=== PATIENT | male | born 1965 | race Caucasian/White ===

== ENCOUNTER 2020-08-13 06:07 | Emergency (ER) | payer OTHER ==
--- OUTSIDE RECORDS SUMMARY | 2020-08-13 06:23 | XMS ---
:1965 Author Organization [facility] Support Name Relationship Address Phone UE Unavailable Unavailable Unavailable MALIKA PHELAN BROTHER [address] [place] [address] Re-disclosure Warning The records that you are about to access may contain information from federally- assisted alcohol or drug abuse programs. If such information is present, then the following federally mandated warning applies: This information has been disclosed to you from records protected by federal confidentiality rules (42 CFR part 2). The federal rules prohibit you from making any further disclosure of this information unless further disclosure is expressly permitted by the written consent of the person to whom it pertains or as otherwise permitted by 42 CFR part 2. A general authorization for the release of medical or other information is NOT sufficient for this purpose. The Federal rules restrict any use of the information to criminally investigate or prosecute any alcohol or drug abuse patient.The records that you are about to access may contain highly sensitive health information, the redisclosure of which is protected by Article 27-F of the [facility] Public Health law. If you continue you may haveaccess to information: Regarding HIV / AIDS; Provided by facilities licensed or operated by the [facility] Office of Mental Health; or Provided by the [facility] Office for People With Developmental Disabilities. If such information is present, then the following [facility] mandated warning applies: This information has been disclosed to you from confidential records which are protected by state law. State law prohibits you from making any further disclosure of this information without the specific written consent of the person to whom it pertains, or as otherwise permitted by law. Any unauthorized further disclosure in violation of state law may result in a fine or mcfp sentence or both. A general authorization for the release of medical or other information is NOT sufficient authorization for further disclosure. Insurance Providers Payer name Policy type Policy ID Covered Covered democrat's Policy P mushtaq / Coverage democrat ID relationship to [place] [facility] orm[facility] type [place] [id number]
[2020-08-13 06:25] VITALS: BP 151/85; PULSE 72; TEMP 97.1; BMI 30.8
[2020-08-13] MEDS ORDERED: KETOROLAC TROMETHAMINE 30 MG/1 ML VIAL IM ONE (07:32)
[2020-08-13] MEDS ORDERED: diazePAM 5 MG TABLET PO ONE (07:33)
[2020-08-13] MEDS ORDERED: diazePAM 5 MG TABLET ONE (07:42)
[2020-08-13] MEDS ORDERED: KETOROLAC TROMETHAMINE 30 MG/1 ML VIAL ONE (07:42)
--- NOTE | 2020-08-13 08:45 | PDOC ---
History of Present Illness - General Chief Complaint: Pain, Acute Stated Complaint: L LEG PAIN Time Seen by Provider: 08/13/20 07:09 History Source: Patient Exam Limitations: No Limitations - History of Present Illness Initial Comments: 08/13/20 08:40 55-year-old male history of lumbar disc herniations otherwise healthy presents complaining of pain from left buttock traveling laterally down to left knee x 3 days. Describes pain as sharp and tingly. Patient denies direct trauma however was playing on the ground while fixing a car intermittently on the left side of his body 3 to 4 days ago. Denies fever, chills, urinary incontinence, bowel incontinence, weakness to lower extremities, calf pain, palpitations, dizziness, shortness of breath, urinary symptoms or any other complaint. Patient took approximately 400 mg of ibuprofen 3 hours ago with minimal relief. ROS: as above PE: GENERAL: well-appearing, NAD HEAD: NCAT EYES: Pupils equal, round and reactive to light, sclera anicteric, conjunctiva clear ENT: pharynx: no erythema, no exudate, uvula midline NECK: supple CHEST: nontender RESP: clear, no w/r/r CARDIO: rrr, no m/g/r ABD: +BS, soft, nontender, non distended BACK: no midline spinal ttp, no CVAT EXTREMITIES: Normal range of motion, no edema, no pain to L calf, 5/5 strength and sensation NEUROLOGICAL: Normal speech, walking with slight limp SKIN: Warm, Dry Is this a multiple visit Asthma Patient?: No Past History - Medical History Allergies/Adverse Reactions: Allergies Allergy/AdvReac Type Severity Reaction Status Date / Time No Known Allergies Allergy Verified 08/13/20 06:25 Home Medications: Ambulatory Orders Cyclobenzaprine HCl 10 mg PO TID PRN 3 Days #10 tablet 08/13/20 COPD: No - Psycho-Social/Smoking History Smoking History: Never smoked Information on smoking cessation initiated: No - Substance Abuse Hx (Audit-C & DAST Scrn) How often the patient has a drink containing alcohol: Never Score: In Men: 4 or > Positive; In Women: 3 or > Positive: 0 Screen Result (Pos requires Nsg. Audit-10AR): Negative In the last yr the pt used illegal drug/Rx for NonMed reason: No Score: Yes response is considered Positive: 0 Screen Result (Positive result requires Nsg. DAST-10): Negative *Physical Exam - Vital Signs Last Vital Signs Temp Pulse Resp BP Pulse Ox 97.1 F L 72 18 151/85 100 08/13/20 06:23 08/13/20 06:23 08/13/20 06:23 08/13/20 06:23 08/13/20 06:23 ED Treatment Course - RADIOLOGY Radiology Studies Ordered: Category Date Time Status SPINE-LUMBAR SACRAL [RAD] Stat Radiology 08/13/20 07:31 Taken - Medications Given in the ED: ED Medications Discontinued Medications Generic Name Dose Route Start Last Admin Trade Name Dalton PRN Reason Stop Dose Admin Diazepam 5 mg 08/13/20 07:33 08/13/20 07:57 Valium - PO 08/13/20 07:34 5 mg ONCE ONE Administration Ketorolac Tromethamine 30 mg 08/13/20 07:32 08/13/20 07:56 Toradol Injection - IM 08/13/20 07:33 30 mg ONCE ONE Administration Medical Decision Making - Medical Decision Making 08/13/20 08:42 55-year-old male history of lumbar disc herniations otherwise healthy presents complaining of pain from left buttock traveling laterally down to left knee x 3 days. Describes pain as sharp and tingly. Patient denies direct trauma however was playing on the ground while fixing a car intermittently on the left side of his body 3 to 4 days ago. Denies fever, chills, urinary incontinence, bowel incontinence, weakness to lower extremities, calf pain, palpitations, dizziness, shortness of breath, urinary symptoms or any other complaint. Patient took approximately 400 mg of ibuprofen 3 hours ago with minimal relief. LS xray: no acute fracture on my wet read Patient feels some improvement after IM Toradol 30 mg and Valium 5 mg p.o. Patient is ambulatory rx for cyclobenzaprine sent to pharmacy Will follow-up with PMD Discharge - Discharge Information Problems reviewed: Yes Clinical Impression/Diagnosis: Radicular pain of left lower extremity Condition: Fair Disposition: HOME - Admission No - Follow up/Referral Referrals: Leo Moore MD [Primary Care Provider] - Jenaro Stevenson MD, FAANS [Staff Physician] - Nolan Strange MD [Staff Physician] - - Patient Discharge Instructions Additional Instructions: Take cyclobenzaprine 10 mg every 8 hours as needed Take Naprosyn 500 mg twice a day Follow-up with your doctor within 1 week Call to schedule an appointment with neurosurgery within 1 week Return to ED if fever, inability to walk, urinary incontinence, bowel incontinence or any concerning symptom - Post Discharge Activity
== END 2020-08-13 08:50 | disposition home or self-care (01) ==
LOC: JER 06:07
PROC: 3E0233Z Introduction of Anti-inflammatory into Muscle, Percutaneous Approach (ICD-10-PCS; principal; 2020-08-13)
DX: M54.16 Radiculopathy, lumbar region (principal)
CPT/HCPCS: 72100-TC-FY; 96372; 99284-25

== ENCOUNTER 2021-07-25 18:51 | Inpatient (IN) | payer OTHER ==
[2021-07-25] MEDS ORDERED: LIDOCAINE 5% TOPICAL PATCH TP ONE (19:39)
[2021-07-25] MEDS ORDERED: ACETAMINOPHEN 500 MG TABLET (FP) PO ONE (19:39)
[2021-07-25] MEDS ORDERED: METHOCARBAMOL 500 MG TABLET PO ONE (19:39)
[2021-07-25] MEDS ORDERED: ACETAMINOPHEN 325 MG TABLET (FP) ONE (19:48)
[2021-07-25] MEDS ORDERED: LIDOCAINE 5% TOPICAL PATCH ONE (19:49)
[2021-07-25] MEDS ORDERED: METHOCARBAMOL 500 MG TABLET ONE (19:49)
[2021-07-25] MEDS ORDERED: morphine CARPU-JECT 4 MG/1 ML DISP.SYRIN IVPUSH ONE ×2 (20:35→22:31)
[2021-07-25] MEDS ORDERED: morphine SULFATE 4 MG/ML VIAL ONE (20:42)
[2021-07-25 21:04] LABS: BASO % 0.3 % (0-2.0); EOS % 0.2 % (0-4.5); HEMATOCRIT 40.2 % (35.4-49); HEMOGLOBIN 13.9 GM/dL (11.7-16.9); LYMPH % 8.6 % (8-40); MCH 32.5 pg (25.7-33.7); MCHC 34.6 g/dl (32.0-35.9); MEAN PLT VOLUME 7.4 fl (7.5-11.1); MONO % 1.9 % (3.8-10.2); PLATELET COUNT 199 10^3/uL (134-434); RBC 4.28 M/mm3 (4.00-5.60); RDW 14.3 % (11.9-15.9); WHITE BLOOD COUNT 9.1 K/mm3 (4.0-10.0)
[2021-07-25 21:46] LABS: BLOOD UREA NITROGEN 15.6 mg/dL (7-18); CALCIUM 9.2 mg/dL (8.5-10.1)
[2021-07-25 21:49] LABS: CREATININE 1.3 mg/dL (0.55-1.3)
[2021-07-25 21:50] LABS: BILIRUBIN,TOTAL 0.6 mg/dL (0.2-1)
[2021-07-25] MEDS ORDERED: SODIUM CHLORIDE 0.9% 500 ML INFUS.BAG IV ONE (21:50)
[2021-07-25 21:51] LABS: TOT PROT 8.2 g/dl (6.4-8.2)
[2021-07-25 23:55] LABS: URINE APPEARANCE CLEAR; URINE BILIRUBIN NEGATIVE (NEGATIVE); URINE COLOR YELLOW; URINE GLUCOSE (UA) NEGATIVE (NEGATIVE); URINE KETONE 2+ (NEGATIVE); URINE LEUK ESTERASE NEGATIVE (NEGATIVE); URINE NITRITE NEGATIVE (NEGATIVE); URINE PROTEIN NEGATIVE (NEGATIVE); URINE UROBILINOGEN 0.2 mg/dL (0.2-1.0)
[2021-07-26] MEDS ORDERED: morphine SULFATE 4 MG/ML VIAL ONE (00:07)
[2021-07-26] MEDS ORDERED: KETOROLAC TROMETHAMINE 30 MG/1 ML VIAL IVPUSH ONE (01:25)
[2021-07-26] MEDS ORDERED: KETOROLAC TROMETHAMINE 30 MG/1 ML VIAL ONE (05:54)
[2021-07-26] MEDS: ENOXAPARIN NA (PORCINE) 40 MG/0.4 ML DISP.SYRIN SQ SCH (10:33)
[2021-07-26] MEDS: MORPHINE SULFATE 2 MG/ML VIAL IVPUSH PRN (10:33)
[2021-07-26 13:12] VITALS: BMI 28.4
[2021-07-26] MEDS: LIDOCAINE PATCH REMOVAL MC SCH ×2 (14:22→21:09)
[2021-07-26] MEDS ORDERED: INDOMETHACIN 50 MG CAPSULE PO ONE (17:00)
[2021-07-27] MEDS ORDERED: PT OWN MED DRAWER 7, Y5N ONE ×2 (04:49→13:02)
[2021-07-27] MEDS: TIZANIDINE HCL 4 MG TABLET PO PRN ×3 (04:50→14:01)
[2021-07-27] MEDS: MORPHINE SULFATE 2 MG/ML VIAL IVPUSH PRN ×3 (04:53→18:07)
[2021-07-27] MEDS: ENOXAPARIN NA (PORCINE) 40 MG/0.4 ML DISP.SYRIN SQ SCH (10:23)
[2021-07-27] MEDS ORDERED: INDOMETHACIN 25 MG CAPSULE PO ONE (13:00)
[2021-07-27] MEDS ORDERED: INDOMETHACIN 50 MG CAPSULE PO ONE (13:00)
[2021-07-27] MEDS: INDOMETHACIN 25 MG CAPSULE PO SCH (21:11)
[2021-07-27] MEDS: LIDOCAINE PATCH REMOVAL MC SCH (21:11)
[2021-07-28] MEDS: INDOMETHACIN 25 MG CAPSULE PO SCH (05:50)
[2021-07-28] MEDS ORDERED: PT OWN MED DRAWER 7, Y5N ONE (09:11)
[2021-07-28] MEDS: TIZANIDINE HCL 4 MG TABLET PO PRN (09:16)
[2021-07-28] MEDS: ENOXAPARIN NA (PORCINE) 40 MG/0.4 ML DISP.SYRIN SQ SCH (09:20)
[2021-07-28 09:41] VITALS: BP 152/77; PULSE 52; TEMP 98
== END 2021-07-28 13:33 | disposition home or self-care (01) | DRG 347 ==
LOC: JERFT 18:51 → JERBED 07-26 01:34 → J5S 07-26 08:38 → OBSVTOIN 07-26 12:57 → J5S 07-27 19:56
PROVIDERS: ADMIT Internal Medicine; ATTEND Internal Medicine
DX: M54.16 Radiculopathy, lumbar region (principal); G89.29 Other chronic pain; M79.10 Myalgia, unspecified site
CPT/HCPCS: 36415; 73502-TC-RT-FY; 74176-TC; 80053; 81003; 83605; 84550; 85025; 85651; 87086; 93005; 93010; 97116-GP; 97162-GP; 99285-25; C9803; G0378; U0003; U0005